=== PATIENT | female | born 1975 ===

== ENCOUNTER 2018-05-26 08:07 | Day surgery (SDC) | payer OTHER ==
[~2018-05-26 08:07] MED LIST: BACLOFEN20 MG; BACLOFEN20 MG PO; MACRODANTIN100 M1; [UNRECOGNIZED DRUG - OTHER] PO
[2018-05-26] MEDS ORDERED: PERCOCET 5-3251 EACH PO (09:10)
[2018-05-26] MEDS ORDERED: NEURONTIN300 MG PO (09:11)
[2018-05-26] MEDS ORDERED: RECTICARE30 GM TOP (09:12)
== END 2018-05-26 10:30 | disposition home or self-care (01) ==
LOC: CIR.AMB 08:07
DX: K64.8 Other hemorrhoids (principal)